=== PATIENT | female | born 1935 | race Hispanic/Latino ===

== ENCOUNTER 2023-07-20 04:49 | Emergency (ER) | payer OTHER, MEDICARE ==
[~2023-07-20 04:49] MED LIST: ADV250 IH; ASPI-1197 PO; CARB200T6 PO; CHOL500050 PO; DULO60CA64 PO; GABAPENTIN PO; LOSA25TA41 PO; NITR0.4T SL; POTA10TA14 PO; PRAV20TA4 PO; SOLI10TA PO; TRAM50TA4 PO; TYL3 PO
[2023-07-20 05:09] VITALS: BP 143/66; PULSE 74; RESP 16; O2SAT 100
[2023-07-20 05:12] LABS: BASOPHILS # (AUTO) 0.02 K/uL (0.00-0.20); BASOPHILS % (AUTO) 0.4 % (0.0-5.0); EOSINOPHILS # (AUTO) 0.58 K/uL (0.00-0.70); EOSINOPHILS % (AUTO) 10.6 % (0.0-8.0); HEMATOCRIT 31.9 % (36-48); IMMATURE GRANULOCYTE ABSOLUTE 0.01 K/uL (0-1); LYMPHOCYTES # (AUTO) 1.7 K/uL (1.0-4.8); LYMPHOCYTES % (AUTO) 30.1 % (21.0-51.0); MEAN CORPUSCULAR HGB CONC 33.5 g/dL (32.0-36.0); MEAN CORPUSCULAR VOLUME 95.5 fL (79-99); MONOCYTES # (AUTO) 0.8 K/uL (0.1-1.0); MONOCYTES % (AUTO) 13.7 % (3.0-13.0); NEUTROPHILS # (AUTO) 2.5 K/uL (1.8-7.7); PLATELET COUNT (AUTO) 199 K/uL (130-400); RED BLOOD CELL COUNT(AUTO) 3.34 MIL/uL (4.00-5.50); WHITE BLOOD COUNT (AUTO) 5.5 K/uL (4.8-10.8)
[2023-07-20] MEDS: 0.9%NACL 1000ML 1,000 ML IV ONE (05:24)
[2023-07-20 05:29] LABS: ACETAMINOPHEN 1 mcg/mL (10-30); ALANINE AMINOTRANSFERASE 13 U/L (12-78); ALBUMIN 2.9 g/dL (3.5-5.0); ALCOHOL, BLOOD < 3 mg/dL (0-10); AMMONIA < 10 umol/L (11-32); ASPARTATE AMINOTRANSFERASE 16 U/L (10-37); BILIRUBIN,TOTAL 0.3 mg/dL (0.2-1.0); CARBON DIOXIDE 25 mmol/L (21-32); CHLORIDE 104 mmol/L (101-111); CREATINE KINASE, TOTAL 40 U/L (21-232); CREATININE 1.4 mg/dL (0.5-1.0); GLOMERULAR FILTR. RATE CALC 36 mL/min (>90); GLUCOSE,RANDOM 120 mg/dL (70-105); SODIUM SERUM 138 mmol/L (136-145); TOTAL PROTEIN, SERUM 6.3 g/dL (6.0-8.3); UREA NITROGEN, BLOOD 15 mg/dL (7-18)
[2023-07-20 05:31] LABS: SALICYLATE < 2.8 mg/dL (2.8-20.0)
[2023-07-20 05:33] LABS: APPEARANCE,URINE CLEAR (CLEAR); BILIRUBIN,URINE NEGATIVE (NEGATIVE); COLOR,URINE LIGHT-YELLOW (YELLOW); GLUCOSE, URINE (UA) NEGATIVE (NEGATIVE); KETONES,URINE NEGATIVE (NEGATIVE); LEUKOCYTE ESTERASE ,URINE NEGATIVE Leu/uL (NEGATIVE); NITRATE,URINE NEGATIVE (NEGATIVE); OCCULT BLOOD,URINE NEGATIVE (NEGATIVE); PH,URINE 6.5 (5.0-8.0); PROTEIN,URINE NEGATIVE (NEGATIVE); UROBILINOGEN,URINE 0.2 mg/dL (0.2-1.0)
[2023-07-20 05:57] LABS: ADD UA MICROSCOPIC NO
[2023-07-20] MEDS ORDERED: MIRA50TA PO (22:03)
== END 2023-07-20 06:28 | disposition home or self-care (01) ==
LOC: EDH 04:49
DX: G40.909 Epilepsy, unspecified, not intractable, without status epilepticus (principal); F31.9 Bipolar disorder, unspecified; I10 Essential (primary) hypertension; Z79.51 Long term (current) use of inhaled steroids; Z79.82 Long term (current) use of aspirin; Z79.899 Other long term (current) drug therapy
CPT/HCPCS: 99285; 71045; 82550; 80053; 82140; 85025; 36415; 93005; 81003; G0481; J7030

== ENCOUNTER 2023-07-20 16:56 | Inpatient (IN) | payer OTHER, MEDICARE ==
[~2023-07-20] VITALS: Ht 149.9 cm; Wt 77.9 kg
[2023-07-20 17:57] LABS: BASOPHILS # (AUTO) 0.02 K/uL (0.00-0.20); BASOPHILS % (AUTO) 0.4 % (0.0-5.0); EOSINOPHILS # (AUTO) 0.51 K/uL (0.00-0.70); EOSINOPHILS % (AUTO) 10.8 % (0.0-8.0); HEMATOCRIT 31.6 % (36-48); IMMATURE GRANULOCYTE ABSOLUTE 0.03 K/uL (0-1); LYMPHOCYTES # (AUTO) 1.4 K/uL (1.0-4.8); LYMPHOCYTES % (AUTO) 29.9 % (21.0-51.0); MEAN CORPUSCULAR HEMOGLOBIN 31.7 pg (27.0-33.0); MEAN CORPUSCULAR HGB CONC 32.9 g/dL (32.0-36.0); MEAN CORPUSCULAR VOLUME 96.3 fL (79-99); MONOCYTES # (AUTO) 0.7 K/uL (0.1-1.0); MONOCYTES % (AUTO) 14.6 % (3.0-13.0); NEUTROPHILS # (AUTO) 2.1 K/uL (1.8-7.7); NEUTROPHILS % (AUTO) 43.7 % (40.0-77.0); PLATELET COUNT (AUTO) 138 K/uL (130-400); RED BLOOD CELL COUNT(AUTO) 3.28 MIL/uL (4.00-5.50); RED CELL DISTRIBUTION WIDTH 13.3 % (11.0-15.5); WHITE BLOOD COUNT (AUTO) 4.7 K/uL (4.8-10.8)
[2023-07-20] MEDS: LORAZEPAM 2 MG/ML 1 ML VIAL IVP ONE (18:00)
[2023-07-20 18:10] LABS: CREATININE 1.3 mg/dL (0.5-1.0); POTASSIUM 4.1 mmol/L (3.5-5.1)
[2023-07-20 18:14] LABS: ALBUMIN 2.7 g/dL (3.5-5.0); BILIRUBIN,DIRECT 0.1 mg/dL (0.0-0.3); BILIRUBIN,TOTAL 0.3 mg/dL (0.2-1.0); TOTAL PROTEIN, SERUM 6.3 g/dL (6.0-8.3)
[2023-07-20] MEDS: LEVETIRACETAM 500 MG/5 ML SD VIAL IV SCH (19:10)
[2023-07-20] MEDS ORDERED: ACETAMINOPHEN 325 MG TAB PO PRN ×2 (20:00)
[2023-07-20] MEDS ORDERED: DIPHENHYDRAMINE HCL 25 MG CAPSULE PO PRN (20:00)
[2023-07-20] MEDS ORDERED: ONDANSETRON 4MG INJ IV PRN (20:00)
[2023-07-20] MEDS ORDERED: KCL 20 MEQ ERTAB PO PRN (20:00)
[2023-07-20] MEDS ORDERED: POTASSIUM CHLORIDE 20MEQ/100ML 100 ML IV PRN ×2 (20:00)
[2023-07-20] MEDS: 0.9%NACL 1000ML 1,000 ML IV SCH (20:34)
[2023-07-20] MEDS: INSULIN HUMULIN R 100 UNIT/ML 3ML SQ SCH (20:40)
[2023-07-20] MEDS: FAMOTIDINE 20MG VIAL IV SCH (21:28)
[2023-07-20] MEDS ORDERED: MIRA50TA PO (22:03)
[2023-07-20 22:30] VITALS: O2SAT 96
[2023-07-20 22:58] VITALS: BP 124/66; PULSE 49; RESP 18
[2023-07-21] VITALS (10 sets, daily range): BP systolic 99–150; BP diastolic 43–80; PULSE 47–69; RESP 16–22; O2SAT 98–99
[2023-07-21] MEDS: LORAZEPAM 2 MG/ML 1 ML VIAL IVP PRN (02:39)
[2023-07-21 04:01] LABS: BASOPHILS # (AUTO) 0.02 K/uL (0.00-0.20); BASOPHILS % (AUTO) 0.5 % (0.0-5.0); EOSINOPHILS # (AUTO) 0.43 K/uL (0.00-0.70); EOSINOPHILS % (AUTO) 11.1 % (0.0-8.0); HEMATOCRIT 32.6 % (36-48); IMMATURE GRANULOCYTE ABSOLUTE 0.01 K/uL (0-1); LYMPHOCYTES # (AUTO) 1.5 K/uL (1.0-4.8); LYMPHOCYTES % (AUTO) 38.3 % (21.0-51.0); MEAN CORPUSCULAR HEMOGLOBIN 31.9 pg (27.0-33.0); MEAN CORPUSCULAR HGB CONC 31.9 g/dL (32.0-36.0); MONOCYTES # (AUTO) 0.4 K/uL (0.1-1.0); MONOCYTES % (AUTO) 10.9 % (3.0-13.0); NEUTROPHILS # (AUTO) 1.5 K/uL (1.8-7.7); NEUTROPHILS % (AUTO) 38.9 % (40.0-77.0); PLATELET COUNT (AUTO) 192 K/uL (130-400); RED BLOOD CELL COUNT(AUTO) 3.26 MIL/uL (4.00-5.50); RED CELL DISTRIBUTION WIDTH 13.2 % (11.0-15.5); WHITE BLOOD COUNT (AUTO) 3.9 K/uL (4.8-10.8)
[2023-07-21 04:23] LABS: CREATININE 1.1 mg/dL (0.5-1.0); POTASSIUM 3.9 mmol/L (3.5-5.1); THYROID STIMULATING HORMONE 1.32 uIU/mL (0.36-3.74)
[2023-07-21 04:35] LABS: ABG BASE EXCESS -6.7 mmol/L (-2.0-3.0); ABG HCO3 18.3 mmol/L (21.0-28.0); ABG OXYGEN SATURATION 98.1 % (95.0-99.0); ABG PCO2 35 mmHg (32-45); ABG PH 7.332 (7.35-7.450); DEVICE COMMENT RR RN; PO2, ARTERIAL BG 118.9 mmHg (83.0-108.0); VENT MODE, BG 2LNC (ROOM AIR)
[2023-07-21] MEDS ORDERED: DEXTROSE 50%-WATER 50 ML DISP.SYRIN IV PRN (06:30)
[2023-07-21] MEDS ORDERED: GLUCAGON 1MG KIT 1 MG ML IM PRN (06:30)
[2023-07-21] MEDS: DEXTROSE 50%-WATER 50 ML DISP.SYRIN IV ONE ×2 (06:40)
[2023-07-21] MEDS: LEVETIRACETAM 500 MG in 0.9%NACL 100ML 100 ML IV SCH (08:42)
[2023-07-21] MEDS: ENOXAPARIN SODIUM 30 MG/0.3 ML SQ SCH (08:42)
[2023-07-21] MEDS ORDERED: COMPOUND IV MISC 1 EACH IVSOLN MISC PRN (11:30)
[2023-07-21 12:40] LABS: APPEARANCE,URINE CLEAR (CLEAR); BILIRUBIN,URINE NEGATIVE (NEGATIVE); COLOR,URINE LIGHT-YELLOW (YELLOW); GLUCOSE, URINE (UA) NEGATIVE (NEGATIVE); KETONES,URINE NEGATIVE (NEGATIVE); LEUKOCYTE ESTERASE ,URINE NEGATIVE Leu/uL (NEGATIVE); NITRATE,URINE NEGATIVE (NEGATIVE); OCCULT BLOOD,URINE NEGATIVE (NEGATIVE); PH,URINE 6.5 (5.0-8.0); PROTEIN,URINE NEGATIVE (NEGATIVE); UROBILINOGEN,URINE 0.2 mg/dL (0.2-1.0)
[2023-07-21] MEDS ORDERED: COMPOUND IV REFRIGERATED 1 EACH IVSOLN MISC PRN (13:00)
[2023-07-21 13:02] LABS: BACTERIA,URINE Rare /HPF (None Seen); RBC,URINE 0-1 /HPF (0-1); SQUAMOUS EPITHELIAL CELL,UR Rare /HPF (0-2); WBC,URINE 0-1 /HPF (0-1)
[2023-07-21] MEDS: CARBAMAZEPINE 200 MG TABLET PO SCH ×2 (13:30→20:00)
[2023-07-21] MEDS: DiphenhydrAMINE HCL 50 MG/ML VIAL IV PRN (20:00)
[2023-07-21] MEDS: DULOXETINE HCL 30 MG CAP PO SCH (20:00)
[2023-07-21] MEDS: ATORVASTATIN 10 MG TABLET PO SCH (20:00)
[2023-07-21] MEDS ORDERED: NON-FORMULARY MEDICATION 1 EACH (Duloxetine HCl 60 MG) PO SCH (21:00)
[2023-07-22] VITALS (7 sets, daily range): BP systolic 127–157; BP diastolic 65–89; PULSE 60–73; RESP 16–20; O2SAT 93–97
[2023-07-22 03:56] LABS: MEAN CORPUSCULAR HEMOGLOBIN 32.1 pg (27.0-33.0); MEAN CORPUSCULAR HGB CONC 32.1 g/dL (32.0-36.0); RED BLOOD CELL COUNT(AUTO) 3.4 MIL/uL (4.00-5.50); RED CELL DISTRIBUTION WIDTH 13.1 % (11.0-15.5); WHITE BLOOD COUNT (AUTO) 5.3 K/uL (4.8-10.8)
[2023-07-22 04:07] LABS: CREATININE 1.1 mg/dL (0.5-1.0); MAGNESIUM 1.9 mg/dL (1.80-2.40); POTASSIUM 4.5 mmol/L (3.5-5.1)
[2023-07-22] MEDS ORDERED: NON-FORMULARY MEDICATION 1 EACH (Pravastatin Sodium 20 MG) PO SCH (09:00)
[2023-07-22] MEDS: MAGNESIUM 2GM PREMIX 50ML 50 ML IV PRN (14:25)
[2023-07-22] MEDS: CEFTRIAXONE 2GM VIAL IVPB SCH (17:27)
[2023-07-22] MEDS: DEXTROSE 5%-LACTATED RINGERS 1,000 ML IV SCH (17:27)
[2023-07-23] VITALS (8 sets, daily range): BP systolic 106–159; BP diastolic 60–85; PULSE 64–80; RESP 16–18; O2SAT 96–99
[2023-07-23] MEDS: LOSARTAN 25 MG TABLET PO SCH (09:02)
[2023-07-24] VITALS (9 sets, daily range): BP systolic 117–142; BP diastolic 53–77; PULSE 62–75; RESP 18–22; O2SAT 100
[2023-07-24] MEDS: POLYETHYLENE GLYCOL 3350 17 GM POWD.PACK PO PRN (04:11)
[2023-07-24 05:13] LABS: HEMATOCRIT 31.5 % (36-48); MEAN CORPUSCULAR HEMOGLOBIN 31.5 pg (27.0-33.0); MEAN CORPUSCULAR HGB CONC 32.7 g/dL (32.0-36.0); MEAN CORPUSCULAR VOLUME 96.3 fL (79-99); RED BLOOD CELL COUNT(AUTO) 3.27 MIL/uL (4.00-5.50); RED CELL DISTRIBUTION WIDTH 12.8 % (11.0-15.5); WHITE BLOOD COUNT (AUTO) 6.3 K/uL (4.8-10.8)
[2023-07-24 05:21] LABS: CREATININE 1.1 mg/dL (0.5-1.0)
[2023-07-24] MEDS ORDERED: PHARMACY COMMUNICATION MISC SCH (10:00)
[2023-07-24] MEDS ORDERED: VANCOMYCIN KIT 1 GM/250 ML IV.KIT IV ONE (10:00)
[2023-07-25] VITALS (7 sets, daily range): BP systolic 107–143; BP diastolic 57–78; PULSE 68–86; RESP 18–20; O2SAT 98
[2023-07-25] MEDS: INSULIN HUMULIN R 100 UNIT/ML 3ML SQ SCH
[2023-07-25 03:56] LABS: HEMATOCRIT 31.2 % (36-48); MEAN CORPUSCULAR HGB CONC 32.7 g/dL (32.0-36.0); MEAN CORPUSCULAR VOLUME 97.8 fL (79-99); RED BLOOD CELL COUNT(AUTO) 3.19 MIL/uL (4.00-5.50); RED CELL DISTRIBUTION WIDTH 12.5 % (11.0-15.5); WHITE BLOOD COUNT (AUTO) 5.8 K/uL (4.8-10.8)
[2023-07-25 04:08] LABS: CREATININE 0.9 mg/dL (0.5-1.0); PHOSPHORUS 3.3 mg/dL (2.5-4.9); POTASSIUM 4.1 mmol/L (3.5-5.1)
[2023-07-25] MEDS: ARTIFICAL TEARS SOL 15 ML OS PRN (17:54)
[2023-07-26] VITALS (8 sets, daily range): BP systolic 103–125; BP diastolic 53–71; PULSE 69–87; RESP 18–22; O2SAT 97–98
[2023-07-26] MEDS: DOCUSATE SODIUM 100 MG CAP PO PRN (08:45)
[2023-07-26] MEDS: LEVETIRACETAM 500 MG TABLET PO SCH (20:54)
[2023-07-27] VITALS (9 sets, daily range): BP systolic 107–137; BP diastolic 47–69; PULSE 61–77; RESP 18–22; O2SAT 95–97
[2023-07-28] VITALS (7 sets, daily range): BP systolic 96–160; BP diastolic 54–77; PULSE 53–65; RESP 17–18; O2SAT 97–98
[2023-07-28 03:46] LABS: BASOPHILS # (AUTO) 0.03 K/uL (0.00-0.20); BASOPHILS % (AUTO) 0.6 % (0.0-5.0); EOSINOPHILS # (AUTO) 0.27 K/uL (0.00-0.70); EOSINOPHILS % (AUTO) 5.5 % (0.0-8.0); HEMATOCRIT 31.4 % (36-48); IMMATURE GRANULOCYTE ABSOLUTE 0.02 K/uL (0-1); LYMPHOCYTES # (AUTO) 1.6 K/uL (1.0-4.8); LYMPHOCYTES % (AUTO) 31.4 % (21.0-51.0); MEAN CORPUSCULAR HEMOGLOBIN 31.9 pg (27.0-33.0); MEAN CORPUSCULAR HGB CONC 32.5 g/dL (32.0-36.0); MEAN CORPUSCULAR VOLUME 98.1 fL (79-99); MONOCYTES # (AUTO) 0.7 K/uL (0.1-1.0); MONOCYTES % (AUTO) 14.8 % (3.0-13.0); NEUTROPHILS # (AUTO) 2.3 K/uL (1.8-7.7); NEUTROPHILS % (AUTO) 47.3 % (40.0-77.0); PLATELET COUNT (AUTO) 244 K/uL (130-400); RED CELL DISTRIBUTION WIDTH 12.7 % (11.0-15.5); WHITE BLOOD COUNT (AUTO) 4.9 K/uL (4.8-10.8)
[2023-07-28 04:11] LABS: CREATININE 0.9 mg/dL (0.5-1.0); POTASSIUM 3.9 mmol/L (3.5-5.1)
[2023-07-28] MEDS: FUROSEMIDE 20MG VIAL IV SCH (08:25)
[2023-07-28] MEDS ORDERED: FUROSEMIDE 20MG VIAL IV SCH (09:00)
[2023-07-28] MEDS: 0.9%NACL 1000ML 1,000 ML IV SCH (16:20)
[2023-07-29] VITALS (7 sets, daily range): BP systolic 109–136; BP diastolic 52–74; PULSE 61–71; RESP 16–19; O2SAT 96
[2023-07-29 06:11] LABS: BASOPHILS # (AUTO) 0.02 K/uL (0.00-0.20); BASOPHILS % (AUTO) 0.5 % (0.0-5.0); EOSINOPHILS # (AUTO) 0.26 K/uL (0.00-0.70); EOSINOPHILS % (AUTO) 6.2 % (0.0-8.0); HEMATOCRIT 30.7 % (36-48); IMMATURE GRANULOCYTE ABSOLUTE 0.01 K/uL (0-1); LYMPHOCYTES # (AUTO) 1.4 K/uL (1.0-4.8); LYMPHOCYTES % (AUTO) 34.3 % (21.0-51.0); MEAN CORPUSCULAR HEMOGLOBIN 31.5 pg (27.0-33.0); MEAN CORPUSCULAR HGB CONC 32.2 g/dL (32.0-36.0); MEAN CORPUSCULAR VOLUME 97.8 fL (79-99); MONOCYTES # (AUTO) 0.5 K/uL (0.1-1.0); MONOCYTES % (AUTO) 11.9 % (3.0-13.0); NEUTROPHILS % (AUTO) 46.9 % (40.0-77.0); PLATELET COUNT (AUTO) 261 K/uL (130-400); RED BLOOD CELL COUNT(AUTO) 3.14 MIL/uL (4.00-5.50); RED CELL DISTRIBUTION WIDTH 12.7 % (11.0-15.5); WHITE BLOOD COUNT (AUTO) 4.2 K/uL (4.8-10.8)
[2023-07-29 06:24] LABS: POTASSIUM 3.5 mmol/L (3.5-5.1)
[2023-07-29] MEDS: POTASSIUM CHLORIDE 10% ELIXIR 20 MEQ/15 ML UDCUP PO PRN (06:36)
[2023-07-29 16:08] LABS: APPEARANCE,URINE CLEAR (CLEAR); BILIRUBIN,URINE NEGATIVE (NEGATIVE); COLOR,URINE YELLOW (YELLOW); GLUCOSE, URINE (UA) NEGATIVE (NEGATIVE); KETONES,URINE NEGATIVE (NEGATIVE); LEUKOCYTE ESTERASE ,URINE NEGATIVE Leu/uL (NEGATIVE); NITRATE,URINE NEGATIVE (NEGATIVE); OCCULT BLOOD,URINE NEGATIVE (NEGATIVE); PH,URINE 6.5 (5.0-8.0); PROTEIN,URINE 10 mg/dL (NEGATIVE); RBC,URINE 0-1 /HPF (0-1); SQUAMOUS EPITHELIAL CELL,UR RARE /HPF (0-2); UROBILINOGEN,URINE 0.2 mg/dL (0.2-1.0); WBC,URINE 0-1 /HPF (0-1)
[2023-07-29] MEDS: QUETIAPINE FUMARATE 25 MG TAB PO SCH (20:44)
[2023-07-30] VITALS (8 sets, daily range): BP systolic 111–137; BP diastolic 60–77; PULSE 59–76; RESP 17–18; O2SAT 98
[2023-07-30 04:19] LABS: BASOPHILS # (AUTO) 0.02 K/uL (0.00-0.20); BASOPHILS % (AUTO) 0.5 % (0.0-5.0); EOSINOPHILS # (AUTO) 0.24 K/uL (0.00-0.70); EOSINOPHILS % (AUTO) 5.9 % (0.0-8.0); HEMATOCRIT 30.2 % (36-48); IMMATURE GRANULOCYTE ABSOLUTE 0.02 K/uL (0-1); LYMPHOCYTES # (AUTO) 1.6 K/uL (1.0-4.8); LYMPHOCYTES % (AUTO) 39.9 % (21.0-51.0); MEAN CORPUSCULAR HGB CONC 32.1 g/dL (32.0-36.0); MEAN CORPUSCULAR VOLUME 96.5 fL (79-99); MONOCYTES # (AUTO) 0.5 K/uL (0.1-1.0); NEUTROPHILS # (AUTO) 1.7 K/uL (1.8-7.7); NEUTROPHILS % (AUTO) 41.2 % (40.0-77.0); PLATELET COUNT (AUTO) 316 K/uL (130-400); RED BLOOD CELL COUNT(AUTO) 3.13 MIL/uL (4.00-5.50); RED CELL DISTRIBUTION WIDTH 12.6 % (11.0-15.5); WHITE BLOOD COUNT (AUTO) 4.1 K/uL (4.8-10.8)
[2023-07-30 04:59] LABS: ALBUMIN 2.1 g/dL (3.5-5.0); BILIRUBIN,TOTAL 0.2 mg/dL (0.2-1.0); CREATININE 0.9 mg/dL (0.5-1.0); MAGNESIUM 2.2 mg/dL (1.80-2.40); THYROID STIMULATING HORMONE 4.43 uIU/mL (0.36-3.74); TOTAL PROTEIN, SERUM 6.3 g/dL (6.0-8.3)
[2023-07-30] MEDS: FOLIC ACID 5 MG/ML VIAL IV ONE (15:14)
[2023-07-31] VITALS: BP 131/63; PULSE 58; RESP 18
[2023-07-31 03:41] VITALS: BP 113/60; PULSE 60; RESP 17
[2023-07-31 07:10] VITALS: BP 113/58; PULSE 70; RESP 18
[2023-07-31] MEDS: THIAMINE HCL 100 MG/ML 2ML VIAL IVP SCH (09:05)
[2023-07-31 09:45] VITALS: O2SAT 99
[2023-07-31 11:05] VITALS: BP 121/58; PULSE 73; RESP 18
== END 2023-07-31 14:55 | DRG 871 ==
LOC: EDH 16:56 → EDHIP 19:54 → 2AH 21:36 → 4AH 07-28 01:07
PROVIDERS: ADMIT Internal Medicine Critical Care Medicine; ATTEND Internal Medicine Critical Care Medicine
PROC: 4A00X4Z Measurement of Central Nervous Electrical Activity, External Approach (ICD-10-PCS; principal; 2023-07-22)
DX: A41.9 Sepsis, unspecified organism (principal); J96.01 Acute respiratory failure with hypoxia; N17.9 Acute kidney failure, unspecified; Z68.41 Body mass index [BMI] 40.0-44.9, adult; E44.1 Mild protein-calorie malnutrition; N30.00 Acute cystitis without hematuria; I13.0 Hypertensive heart and chronic kidney disease with heart failure and stage 1 through stage 4 chronic kidney disease, or unspecified chronic kidney disease; I50.42 Chronic combined systolic (congestive) and diastolic (congestive) heart failure; G40.909 Epilepsy, unspecified, not intractable, without status epilepticus; D64.9 Anemia, unspecified; E66.01 Morbid (severe) obesity due to excess calories; N18.30 Chronic kidney disease, stage 3 unspecified; E11.22 Type 2 diabetes mellitus with diabetic chronic kidney disease; E78.5 Hyperlipidemia, unspecified; F03.90 Unspecified dementia, unspecified severity, without behavioral disturbance, psychotic disturbance, mood disturbance, and anxiety; Z79.899 Other long term (current) drug therapy
CPT/HCPCS: 36415; 36600; 70450; 70551; 71045; 71250; 74176; 74230; 80048; 80053; 80076; 80156; 80157; 80177; 80185; 81001; 82140; 82803; 82948; 83735; 84100; 84146; 84443; 84484; 85025; 85027; 86592; 87040; 87077; 87088; 87186; 92611; 93005; 93306; 95816; 95819; 96365; 96375; G0378; J0696; J1200; J1650; J1940; J1953; J2060; J3411; J3475; J3490; J7070